=== PATIENT | female | born 1975 | race Caucasian/White ===

== ENCOUNTER 2018-07-29 18:12 | Emergency (ER) | payer BC ==
[2018-07-29 18:28] VITALS: BP 161/93
--- NOTE | 2018-07-29 18:40 | UC ---
Throat Pain/Nasal Garrett HPI - HPI Summary HPI Summary: Had a sore throat last week, few days of improvement and got another sore throat starting Mon but now has lost her voice. denies sick contacts. - History of Current Complaint Chief Complaint: UCRespiratory Stated Complaint: sore THROAT Time Seen by Provider: 07/29/18 18:14 Hx Last Menstrual Period: 07/29/2018 Onset/Duration: Gradual Onset Severity: Mild Pain Intensity: 3 Pain Scale Used: 0-10 Numeric - Allergies/Home Medications Allergies/Adverse Reactions: Allergies Allergy/AdvReac Type Severity Reaction Status Date / Time No Known Allergies Allergy Verified 07/29/18 18:22 Home Medications: Home Medications Guaifenesin/Pseudoephedrne HCl [Mucinex D ER Tablet] 1 tab PO DAILY PRN [History Confirmed 07/29/18] PMH/Surg Hx/FS Hx/Imm Hx - Surgical History Surgical History: Yes Surgery Procedure, Year, and Place: tubal ligation 2000 - Social History Alcohol Use: None Substance Use Type: None Smoking Status (MU): Never Smoked Tobacco Review of Systems All Other Systems Reviewed And Are Negative: Yes Constitutional: Positive: Negative Skin: Positive: Negative ENT: Positive: Sore Throat Respiratory: Positive: Negative Cardiovascular: Positive: Negative Physical Exam Triage Information Reviewed: Yes Appearance: Well-Appearing Vital Signs: Initial Vital Signs Temp 97.3 F 07/29/18 18:23 Pulse 99 07/29/18 18:23 Resp 18 07/29/18 18:23 BP 161/93 07/29/18 18:23 Pulse Ox 99 07/29/18 18:23 Vital Signs Reviewed: Yes ENT: Positive: Pharynx normal, TMs normal, Hoarse voice. Negative: Tonsillar swelling, Tonsillar exudate Neck: Positive: Nontender, No Lymphadenopathy Respiratory Exam: Normal Cardiovascular Exam: Normal Skin Exam: Normal Throat Pain/Nasal Course/Dx - Course Assessment/Plan: Viral Pharyngitis/Laryngitis. rapid strep neg.. Self-limiting , no indication for antibx. Did discuss high blood pressure w/ pt. No cardiac symptoms today. - Differential Dx/Diagnosis Differential Diagnosis/HQI/PQRI: Influenza, Pharyngitis, Tonsillitis, URI Provider Diagnosis: Laryngitis, HTN (hypertension) Discharge - Sign-Out/Discharge Documenting (check all that apply): Patient Departure All imaging exams completed and their final reports reviewed: No Studies - Discharge Plan Condition: Good Disposition: HOME Patient Education Materials: Laryngitis (ED), Chronic Hypertension (ED) Forms: *Work Release Referrals: No Primary Care Phys,NOPCP [Primary Care Provider] - [facility] [Outside] Additional Instructions: If not improvement after a week please follow up with your pcp. - Billing Disposition and Condition Condition: GOOD Disposition: Home
== END 2018-07-29 18:55 | disposition home or self-care (01) ==
LOC: UCEAST 18:12
DX: J04.0 Acute laryngitis (principal); I10 Essential (primary) hypertension
CPT/HCPCS: 87651; 99201; G0463